=== PATIENT | female | born 1970 | race Caucasian/White ===

== ENCOUNTER 2017-10-04 10:00 | Emergency (ER) | payer OTHER ==
[2017-10-04 10:09] VITALS: RESP 16
[2017-10-04] MEDS ORDERED: SODIUM CHLORIDE 0.9% 1,000 ML IV STA (10:29)
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
[2017-10-04 11:31] LABS: Basophils % (A) 1 %; CH 31.4; CHCM 32.1; Eosinophils # (A) 0.1 k/uL (0-0.7); Eosinophils % (A) 1 %; HDW 2.12; HGB 14.4 gm/dL (11.4-16.0); Luc # (Auto) 0.09; Luc % (Auto) 2; Lymphocytes # (A) 0.8 k/uL (1.0-4.8); Lymphocytes % (A) 13 %; MCH 31.3 pg (25.0-35.0); MCV 98.1 fL (80.0-100.0); Mean Platelet Volume 7.2; Monocytes # (A) 0.4 k/uL (0-1.0); Monocytes % (A) 7 %; Neutrophils # (A) 4.7 k/uL (1.3-7.7); Neutrophils % (A) 77 %; RBC 4.59 m/uL (3.80-5.40); RDW 13.9 % (11.5-15.5); WBC (Perox) 6.14
[2017-10-04 11:44] LABS: ALT 29 U/L (9-52); AST 26 U/L (14-36); Alkaline Phosphatase 52 U/L (38-126); Anion Gap 7 mmol/L; Blood Urea Nitrogen 9 mg/dL (7-17); Calcium 9.5 mg/dL (8.4-10.2); Carbon Dioxide 24 mmol/L (22-30); Chloride 109 mmol/L (98-107); Glucose 92 mg/dL (74-99); Non-African American GFR(MDRD) >60 (>60 ml/min/1.73 sqM); Sodium 140 mmol/L (137-145); Total Bilirubin 0.5 mg/dL (0.2-1.3); Total Protein 6.7 g/dL (6.3-8.2)
[2017-10-04 11:46] LABS: Potassium 4.1 mmol/L (3.5-5.1)
[2017-10-04 13:12] VITALS: BP 149/88; PULSE 64; TEMP 97.8
== END 2017-10-04 13:15 | disposition home or self-care (01) ==
LOC: EC 10:00
DX: R56.9 Unspecified convulsions (principal); E07.9 Disorder of thyroid, unspecified; F41.9 Anxiety disorder, unspecified; F32.9 Major depressive disorder, single episode, unspecified; F17.200 Nicotine dependence, unspecified, uncomplicated; Z85.41 Personal history of malignant neoplasm of cervix uteri; Z79.899 Other long term (current) drug therapy; Z88.8 Allergy status to other drugs, medicaments and biological substances
CPT/HCPCS: 36415; 80053; 85025; 93005; 96360; 99285

== ENCOUNTER → 2018-03-18 | Outpatient (CLI) | payer OTHER ==
--- NOTE | 2018-03-18 09:21 | US ---
EXAMINATION TYPE: US pelvic complete DATE OF EXAM: 03/18/2018 COMPARISON: NONE CLINICAL HISTORY: N93.8 Dysfunctional Uterine Bleeding. 4 cycles in 2 months, endometriosis, patient states she was recommended for hysterectomy at 28 but declined then, multiple episodes of DUB TECHNIQUE: TA. Transabdominal sonographic images of the pelvis were acquired. Patient voided prior to exam because of being so full, still felt full and did not want TV if not needed Date of LMP: 03/10/2018 EXAM MEASUREMENTS: Uterus: 12.9 x 5.5 x 5.0 cm Endometrial Stripe: 0.9 cm Right Ovary: 3.2 x 2.2 x 1.7 cm Left Ovary: 2.8 x 2.0 x 1.5 cm 1. Uterus: Anteverted myometrial heterogeneity is again noted without distinct mass. 2. Endometrium: wnl 3. Right Ovary: wnl 4. Left Ovary: wnl 5. Bilateral Adnexa: wnl 6. Posterior cul-de-sac: wnl IMPRESSION: Stable diffuse myometrial heterogeneity which may reflect small leiomyomatous myomatous change versus adenomyosis.
[2018-03-18 09:52] LABS: T4, Free (Free Thyroxine) 0.82 ng/dL (0.78-2.19)
== END | disposition home or self-care (01) ==
LOC: RADUSWWP 08:24
PROVIDERS: ATTEND Obstetrics & Gynecology
DX: N93.8 Other specified abnormal uterine and vaginal bleeding (principal); N92.1 Excessive and frequent menstruation with irregular cycle
CPT/HCPCS: 36415; 76856; 83001; 83002; 84146; 84439; 84443; 84481

== ENCOUNTER → 2018-10-19 | Outpatient (CLI) | payer OTHER ==
--- NOTE | 2018-10-19 11:42 | US ---
EXAMINATION TYPE: US pelvic complete DATE OF EXAM: 10/19/2018 COMPARISON: NONE CLINICAL HISTORY: N92.1 Menorrhagia w/irregular cycle. Irregular menses, menses lasting 2-3 weeks, en dometriosis TECHNIQUE: Transabdominal (TA) Date of LMP: 09/17/18 EXAM MEASUREMENTS: Uterus: 8.6 x 5.1 x 6.2 cm Endometrial Stripe: 0.6 cm Right Ovary: 3.7 x 2.0 x 4.0 cm Left Ovary: 4.0 x 2.4 x 2.1 cm 1. Uterus: Anteverted heterogeneous 2. Endometrium: appears wnl 3. Right Ovary: follicles noted 4. Left Ovary: follicles noted 5. Bilateral Adnexa: wnl 6. Posterior cul-de-sac: free fluid noted Urinary bladder is sonolucent. The posterior wall is unremarkable. IMPRESSION: 1. Normal pelvic ultrasound
== END | disposition home or self-care (01) ==
LOC: RADUSWWP 07:24
PROVIDERS: ATTEND Obstetrics & Gynecology
DX: N92.1 Excessive and frequent menstruation with irregular cycle (principal)
CPT/HCPCS: 76856

== ENCOUNTER 2018-10-24 06:11 | Day surgery (SDC) | payer OTHER ==
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
[~2018-10-24 06:11] MED LIST: DEXAMETHASONE SOD PHOSPHATE 10 MG/ML 1 ML VIAL IV ONE; LACTATED RINGERS 1,000 ML IV SCH; MIDAZOLAM (PF) 2 MG/2 ML VIAL IV PRN; Pre Op ABX Message 1 EACH MISC MISCELLANE ONE; SCOPOLAMINE 1.5MG/72HR PATCH TRANSDERM ONE
[2018-10-24] MEDS: ONDANSETRON 4 MG/2 ML VIAL IVP ONE ×2 (06:39→08:23)
[2018-10-24] MEDS ORDERED: LIDOCAINE 1% 20 ML VIAL (10MG/ML) FOR IV START INTRADERMA ONE (06:42)
[2018-10-24] MEDS ORDERED: LIDOCAINE 1% INJ 10MG/ML (20 ML MDV) ONE (07:29)
[2018-10-24] MEDS ORDERED: MIDAZOLAM 2 MG/2 ML VIAL ONE (07:29)
[2018-10-24] MEDS ORDERED: KETOROLAC 30 MG/ML 1 ML VIAL ONE (07:29)
[2018-10-24] MEDS ORDERED: PROPOFOL 10 MG/ML 20 ML VIAL IV ONE (07:29)
[2018-10-24] MEDS ORDERED: fentaNYL (PF) 50 MCG/ML 2 ML AMP ONE (07:29)
[2018-10-24 08:09] VITALS: RESP 16; TEMP 97
[2018-10-24] MEDS: HYDROmorphone 1 MG/ML 1 ML SYRINGE IVP PRN ×2 (08:12→08:17)
[2018-10-24] MEDS: MEPERIDINE 50 MG/ML SYRINGE IVP ONE ×2 (08:24→08:28)
--- NOTE | 2018-10-24 08:45 | P.OP ---
Date of Procedure: 10/24/18 Preoperative Diagnosis: Menorrhagia Postoperative Diagnosis: Same Procedure(s) Performed: Dilation and curettage with hysteroscopy Anesthesia: BANDAR Surgeon: Jaydon Smith Estimated Blood Loss (ml): 5 Pathology: other (Uterine curettings) Condition: stable Disposition: same day Operative Findings: Tissue pathology pending Description of Procedure: Patient was taken to the operating suite where general anesthetic was found be adequate. She was prepped and draped in the normal sterile fashion and placed in the dorsal lithotomy position. Initially a weighted speculum was inserted into the vagina and the anterior lip of the cervix was identified and grasped with a Allis clamp. Uterus was then sounded to 8 cm and cervix was dilated. Uterus is noted. Once this was a copy camera was inserted no significant pathology noted visually. Sharp curettings were then obtained and placed on Telfa and sent to pathology for evaluation. Once this was accomplished with sponge, lap, needle counts were all correct 2. Patient was taken to the recovery room in stable and satisfactory condition. Plan - Discharge Summary New Discharge Prescriptions: New Ibuprofen [Motrin] 600 mg PO Q6HR PRN #30 tab PRN Reason: Pain No Action Thyroid, Pork [[place] Thyroid] 45 mg PO DAILY Sertraline [Zoloft] 150 mg PO DAILY Amoxicillin 875 mg PO Q12HR Discharge Medication List Thyroid, Pork [[place] Thyroid] 45 mg PO DAILY 04/30/15 [History] Sertraline [Zoloft] 150 mg PO DAILY 10/04/17 [History] Amoxicillin 875 mg PO Q12HR 10/24/18 [History] Ibuprofen [Motrin] 600 mg PO Q6HR PRN #30 tab 10/24/18 [Rx] Follow up Appointment(s)/Referral(s): Jaydon Smith DO [Doctor of Osteopathic Medicine] - 2 Weeks Patient Instructions/Handouts: *Surgery [facility] - Scopalamine Patch Instructions Activity/Diet/Wound Care/Special Instructions: No heavy lifting, limit stairs and driving, and pelvic rest. If any high temperatures, heavy bleeding, or severe pain, call my office Discharge Disposition: HOME SELF-CARE
[2018-10-24 09:15] VITALS: BP 127/82; PULSE 73
== END 2018-10-24 09:42 | disposition home or self-care (01) ==
LOC: OR 06:11
PROVIDERS: ATTEND Obstetrics & Gynecology
DX: N84.0 Polyp of corpus uteri (principal); N92.0 Excessive and frequent menstruation with regular cycle; N93.8 Other specified abnormal uterine and vaginal bleeding; G47.30 Sleep apnea, unspecified; E07.9 Disorder of thyroid, unspecified; E16.2 Hypoglycemia, unspecified; F32.9 Major depressive disorder, single episode, unspecified; K21.9 Gastro-esophageal reflux disease without esophagitis; F17.210 Nicotine dependence, cigarettes, uncomplicated; Z79.890 Hormone replacement therapy; Z79.899 Other long term (current) drug therapy; Z87.09 Personal history of other diseases of the respiratory system; Z85.41 Personal history of malignant neoplasm of cervix uteri; Z88.8 Allergy status to other drugs, medicaments and biological substances; Z91.041 Radiographic dye allergy status
CPT/HCPCS: 81025; 88305; 58558; J2250; J1100; J2175; J2405; J2001; J3010; J1885; J1170; J2704

== ENCOUNTER 2021-07-24 08:37 | Day surgery (SDC) | payer OTHER ==
[2021-07-22 09:16] VITALS: BMI 21.2
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
[~2021-07-24 08:37] MED LIST changes: -DEXAMETHASONE SOD PHOSPHATE 10 MG/ML 1 ML VIAL IV ONE; +DEXAMETHASONE SOD PHOSPHATE 4 MG/ML 1 ML VIAL IV ONE; -MIDAZOLAM (PF) 2 MG/2 ML VIAL IV PRN; +ONDANSETRON 4 MG/2 ML VIAL IVP ONE; -SCOPOLAMINE 1.5MG/72HR PATCH TRANSDERM ONE
[2021-07-24] MEDS ORDERED: LIDOCAINE 1% (10MG/ML) FOR IV START INTRADERMA ONE (09:15)
[2021-07-24 09:43] LABS: Glucose,Whole Blood 91 mg/dL (75-99)
[2021-07-24] MEDS ORDERED: LIDOCAINE 1% INJ 10MG/ML (20 ML MDV) ONE (10:30)
[2021-07-24] MEDS ORDERED: fentaNYL (PF) 50 MCG/ML 2 ML AMP ONE (10:30)
[2021-07-24] MEDS ORDERED: PROPOFOL 10 MG/ML 20 ML VIAL IV ONE (10:30)
[2021-07-24] MEDS ORDERED: MIDAZOLAM 2 MG/2 ML VIAL ONE (10:30)
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
[2021-07-24] MEDS ORDERED: METOCLOPRAMIDE 5 MG/ML 2 ML VIAL ONE (11:12)
[2021-07-24] MEDS ORDERED: METOCLOPRAMIDE 5 MG/ML 2 ML VIAL IVP ONE (11:14)
[2021-07-24 11:23] VITALS: TEMP 98.1
[2021-07-24] MEDS ORDERED: LACTATED RINGERS 1,000 ML IV ONE ×2 (11:35)
[2021-07-24] MEDS: HYDROmorphone 0.5 MG/0.5 ML SYRINGE IVP PRN ×2 (11:35→11:42)
[2021-07-24] MEDS ORDERED: KETOROLAC 15 MG/ML 1 ML VIAL ONE (11:52)
[2021-07-24] MEDS ORDERED: KETOROLAC 15 MG/ML 1 ML VIAL IVP ONE (11:56)
[2021-07-24 12:57] VITALS: BP 123/74; PULSE 76; RESP 18
== END 2021-07-24 13:05 | disposition home or self-care (01) ==
LOC: OR 08:37
PROVIDERS: ATTEND Obstetrics & Gynecology
DX: N93.8 Other specified abnormal uterine and vaginal bleeding (principal); G47.33 Obstructive sleep apnea (adult) (pediatric); F17.200 Nicotine dependence, unspecified, uncomplicated; E07.9 Disorder of thyroid, unspecified; F41.8 Other specified anxiety disorders; Z79.899 Other long term (current) drug therapy; Z99.89 Dependence on other enabling machines and devices; Z85.41 Personal history of malignant neoplasm of cervix uteri; T75.3XXA Motion sickness, initial encounter
CPT/HCPCS: 58563; 81025; 88305; J2250; J1100; J2765; J2405; J2001; J3010; J1885; J2704; J1170

== ENCOUNTER → 2021-07-31 | Outpatient (CLI) | payer OTHER ==
--- NOTE | 2021-08-01 09:50 | MM ---
Reason for exam: screening (asymptomatic). Last mammogram was performed 4 years and 11 months ago. History: Patient has history of other cancer at age 29. Implant Removal of both breasts, 2019. Physical Findings: A clinical breast exam by your physician is recommended on an annual basis and results should be correlated with mammographic findings. MG Screening Mammo w CAD Bilateral CC, MLO, and XCCL view(s) were taken. Prior study comparison: August 31, 2016, bilateral MG screening mammo implant/CAD. The breast tissue is heterogeneously dense. This may lower the sensitivity of mammography. There is no discrete abnormality. No significant changes when compared with prior studies. ASSESSMENT: Negative, BI-RAD 1 RECOMMENDATION: Routine screening mammogram of both breasts in 1 year.
== END | disposition home or self-care (01) ==
LOC: RADMAMWWP 09:12
PROVIDERS: ATTEND Obstetrics & Gynecology
DX: Z12.31 Encounter for screening mammogram for malignant neoplasm of breast (principal); Z85.89 Personal history of malignant neoplasm of other organs and systems
CPT/HCPCS: 77067